=== PATIENT | male | born 1990 | race Caucasian/White ===

== ENCOUNTER 2018-04-02 18:16 | Emergency (ER) | payer BC ==
--- NOTE | 2018-04-02 18:51 | ERPHSYRPT ---
- History of Present Illness Time Seen by Provider: 04/02/18 18:51 Source: patient Exam Limitations: no limitations Physician History: 27 y/o white male presents with worsening right testicular pain for 2 days. pt was shoveling snow aggressively. pt has urinary frequency. Timing/Duration: day(s) (2), worse Activites at Onset: physical activity (shoveling snow) Quality: sharpness, stabbing Onset Location: right testicle Pain Radiation: other (along right spermatic cord cranially) Modifying Factors: Improves With: movement Associated Symptoms: urinary frequency Prior abdominal problems: none Sexual intercourse history: non-contributory Allergies/Adverse Reactions: dissolvable suture Adverse Reaction (Uncoded 04/02/18 19:00) Home Medications: Alprazolam 1 mg [Xanax 1 mg] 1 mg PO DAILY 04/02/18 [History] Meloxicam 7.5 mg [Mobic 7.5 MG] 7.5 mg PO DAILY 04/02/18 [History] Venlafaxine HCl ER 75 mg [Effexor XR 75 MG] 150 mg PO DAILY 04/02/18 [ History] - Past Medical History Pertinent Past Medical History: Yes Neurological History: No Pertinent History ENT History: No Pertinent History Cardiac History: No Pertinent History Respiratory History: No Pertinent History Endocrine Medical History: No Pertinent History Musculoskeletal History: No Pertinent History GI Medical History: No Pertinent History History: No Pertinent History Psycho-Social History: No Pertinent History Male Reproductive Disorders: No Pertinent History - Past Surgical History Neuro Surgical History: No Pertinent History Cardiac: No Pertinent History Respiratory: No Pertinent History Gastrointestinal: No Pertinent History Genitourinary: No Pertinent History Musculoskeletal: No Pertinent History Male Surgical History: No Pertinent History - Review of Systems Constitutional: No Symptoms Eyes: No Symptoms Ears, Nose, & Throat: No Symptoms Respiratory: No Symptoms Cardiac: No Symptoms Abdominal/Gastrointestinal: No Symptoms Genitourinary Symptoms: Testicle Pain (right) Musculoskeletal: No Symptoms Skin: No Symptoms Neurological: No Symptoms Psychological: No Symptoms Endocrine: No Symptoms Hematologic/Lymphatic: No Symptoms Immunological/Allergic: No Symptoms All Other Systems: Reviewed and Negative - Nursing Vital Signs Nursing Vital Signs: Initial Vital Signs Temperature 98.9 F 04/02/18 18:46 Pulse Rate 93 H 04/02/18 18:46 Respiratory Rate 20 04/02/18 18:46 Blood Pressure 145/100 04/02/18 18:46 O2 Sat by Pulse Oximetry 99 04/02/18 18:46 Pain Scale Pain Intensity 8 - Physical Exam General Appearance: no apparent distress, alert, anxiety Eye Exam: PERRL/EOMI, eyes nml inspection Ears, Nose, Throat Exam: normal ENT inspection, moist mucous membranes Neck Exam: normal inspection Respiratory Exam: normal breath sounds, lungs clear, airway intact, No chest tenderness, No respiratory distress, No accessory muscle use, No rhonchi, No wheezing, No stridor Cardiovascular Exam: regular rate/rhythm, normal heart sounds, normal peripheral pulses Gastrointestinal/Abdomen Exam: soft, normal bowel sounds, No tenderness, No guarding Rectal Exam: not done Back Exam: normal inspection, normal range of motion, No CVA tenderness, No vertebral tenderness Extremity Exam: normal inspection, normal range of motion, pelvis stable Neurologic Exam: alert, oriented x 3, cooperative, commercial property administrator II-XII nml as tested Skin Exam: normal color, warm, dry Lymphatic Exam: adenopathy SpO2 Interpretation: normal Oxygen Delivery: Room Air - Course Nursing assessment & vital signs reviewed: Yes Ordered Tests: Active Orders 24 hr Category Date Time Status Clean Catch Urine Specimen STAT Care 04/02/18 19:00 Active TESTICLE [US] Stat Exams 04/02/18 19:00 Taken UA W/RFX UR CULTURE Stat Lab 04/02/18 19:09 Completed Lab/Rad Data: Laboratory Results 04/02/18 Range/Units 19:09 Urine Color YELLOW (YELLOW) Urine Appearance CLEAR (CLEAR) Urine pH 6.0 (5-6) Ur Specific [place] 1.019 (1.005-1.025) Urine Protein NEGATIVE (Negative) Urine Ketones TRACE (NEGATIVE) Urine Blood NEGATIVE (0-5) Hossein/ul Urine Nitrite NEGATIVE (NEGATIVE) Urine Bilirubin NEGATIVE (NEGATIVE) Urine Urobilinogen NEGATIVE (0-1) mg/dL Ur Leukocyte Esterase NEGATIVE (NEGATIVE) Urine WBC (Auto) NONE (0-5) /HPF Urine RBC (Auto) NONE (0-2) /HPF U Epithel Cells (Auto) NONE (FEW) /HPF Urine Bacteria (Auto) NONE SEEN (NEGATIVE) /HPF Urine Mucus (Auto) SLIGHT (NEGATIVE) /HPF Urine Culture Reflexed NO (NO) Urine Glucose NEGATIVE (NEGATIVE) mg/dL - Progress Progress: unchanged, re-examined Progress Note: 04/02/18 19:51 us right testicle-negative for torsion or masses Counseled pt/family regarding: lab results, diagnosis, need for follow-up, rad results - Departure Time of Disposition: 20:12 Departure Disposition: Home Clinical Impression: Right epididymitis Condition: Stable Critical Care Time: No Additional Instructions: drink plenty of fluids. follow up with urologist for perstistent symptoms Prescriptions: Ciprofloxacin [Cipro 500 MG] 500 mg PO BID #14 tablet
[2018-04-02 19:48] LABS: Appearance CLEAR (CLEAR); Bilirubin NEGATIVE (NEGATIVE); Blood NEGATIVE Ery/ul (0-5); Glucose NEGATIVE (NEGATIVE); Ketones TRACE (NEGATIVE); Leukocyte Esterase NEGATIVE (NEGATIVE); Mucus SLIGHT /HPF (NEGATIVE); Nitrite NEGATIVE (NEGATIVE); Protein,Urine Dip NEGATIVE (Negative); Specific Gravity 1.019 (1.005-1.025); Urobilinogen NEGATIVE mg/dL (0-1)
[2018-04-02 19:56] LABS: Bacteria NONE SEEN /HPF (NEGATIVE)
[2018-04-02] MEDS ORDERED: Cipro 500 MG PO STA (20:24)
[2018-04-02] MEDS ORDERED: Cipro 500 MG ONE (20:27)
[2018-04-02 21:17] VITALS: BP 138/96; PULSE 80; O2SAT 98
--- NOTE | 2018-04-03 08:57 | XRAY ---
Indication: Right testicle pain. Two-dimensional testicular sonogram performed. Comparison: None Both testicles homogeneous in echogenicity with normal color Doppler flow. Right testicle measures 4.3 x 2.4 x 2.6 cm and the left measures 3.5 x 2.3 x 2.9 cm. Left and right epididymis sonographically unremarkable. No suspicious extratesticular mass. Small nonspecific bilateral hydroceles. Targeted images of the right groin negative for suspicious mass or inguinal hernia. Impression: Small nonspecific bilateral hydroceles. Negative for suspicious intra/extratesticular mass or torsion. Comment: Preliminary report was given.
== END 2018-04-02 20:50 | disposition home or self-care (01) ==
LOC: ED 18:16
DX: N45.1 Epididymitis (principal)
CPT/HCPCS: 76870; 81001; 99284; A9270-GY